=== PATIENT | female | born 1975 | race Caucasian/White ===

== ENCOUNTER 2023-04-19 09:21 | Outpatient (OUT) | payer OTHER, SELFPAY ==
[2023-04-19 10:57] LABS: Chol HDL Ratio 2.3; Cholesterol 172 mg/dL (<=200); HDL Cholesterol 74 mg/dL (40-60); Triglycerides 57 mg/dL (<=150); VLDL CHOLESTEROL 11.4 mg/dL
== END 2023-04-19 09:22 | disposition home or self-care (01) ==
PROVIDERS: PCP Nurse Practitioner Primary Care; Visit Provider Nurse Practitioner Primary Care
DX: E78.00 Pure hypercholesterolemia, unspecified (principal)
CPT/HCPCS: 80061

== ENCOUNTER 2023-05-04 13:00 | Outpatient (OUT) | payer OTHER, SELFPAY | END 2023-05-04 13:01 | disposition home or self-care (01) | LOC: PST 05-13 18:31 | PROVIDERS: PCP Nurse Practitioner Primary Care; Visit Provider Surgery | DX: Z01.818 Encounter for other preprocedural examination (principal); Z12.11 Encounter for screening for malignant neoplasm of colon ==

== ENCOUNTER 2023-05-11 07:30 | Day surgery (SDC) | payer OTHER, SELFPAY ==
[2023-05-11] MEDS: LACTATED RINGER'S SOLUTION 1,000 ML 50 ML IV (07:30)
[2023-05-11 07:45] VITALS: BP 139/91; PULSE 56; RESP 20; TEMP 36.4; O2SAT 98; BMI 30.2
[2023-05-11 08:00] LABS: HCG Qualitative NEGATIVE (NEGATIVE)
[2023-05-11 08:25] LABS: HCG Quantitative 5 mIU/mL
[2023-05-11 09:36] VITALS: BP 112/71; PULSE 59; RESP 20; TEMP 36.1; O2SAT 99
--- NOTE | 2023-05-11 09:38 | PM.GSPRC ---
Date of procedure: 05/11/23 Indications for Procedure: This patient is a 47-year-old female who presents for screening colonoscopy. The risks benefits options and potential complications of the procedure were discussed in detail with the patient and they agreed to proceed and consent was signed. Pre-op diagnosis: colon cancer screening Post-op diagnosis: other (normal exam) Procedure: colonoscopy Anesthesia: MAC Surgeon: Hernan Rivero Procedure Summary: The patient was brought to the endoscopy suite and placed in the left lateral decubitus position.? Under MAC the fiberoptic colonoscope was introduced into the rectum. This was gradually advanced through the colon to the cecum. The cecal landmarks were identified. The bowel prep was good. Gradual withdrawal of the colonoscope was then undertaken. No vascular polypoid or mucosal lesions were noted throughout the entire length of the colon. The anal rectal canal was unremarkable. The colon was decompressed. Digital rectal exam was unremarkable. The procedure was ended and the patient was transferred to the recovery area in stable condition. Recommended follow-up colonoscopy in ten years. Estimated blood loss (mL): 0 Specimens: none Complications: No
[2023-05-11 09:53] VITALS: BP 147/98; PULSE 58; RESP 18; O2SAT 98
[2023-05-11 10:05] VITALS: BP 151/95; PULSE 58; RESP 16; O2SAT 96
== END 2023-05-11 10:06 | disposition home or self-care (01) ==
PROVIDERS: PCP Nurse Practitioner Primary Care; Visit Provider Surgery
PROC: (CPT 812; principal; 2023-05-11 08:30)
DX: Z12.11 Encounter for screening for malignant neoplasm of colon (principal); K21.9 Gastro-esophageal reflux disease without esophagitis; Z86.74 Personal history of sudden cardiac arrest; R56.9 Unspecified convulsions; Z98.51 Tubal ligation status; Z98.84 Bariatric surgery status; Z87.891 Personal history of nicotine dependence
CPT/HCPCS: 00812; 45378; 36415; 84702; 84703; J2704

== ENCOUNTER 2023-05-14 13:21 | Outpatient (OUT) | payer OTHER, SELFPAY ==
[2023-05-10 14:51] LABS: Amphetamine Screen Urine NEGATIVE (NEGATIVE); Barbiturates Screen Urine NEGATIVE (NEGATIVE); Benzodiazepines Screen Urine NEGATIVE (NEGATIVE); Buprenorphine Screen Urine NEGATIVE (NEGATIVE); Cannabinoid Screen Urine NEGATIVE (NEGATIVE); Cocaine Screen Urine NEGATIVE (NEGATIVE); Methadone Screen Urine NEGATIVE (NEGATIVE); Methamphetamines Screen Urine NEGATIVE (NEGATIVE); Opiate Screen Urine NEGATIVE (NEGATIVE); Oxycodone Screen Urine NEGATIVE (NEGATIVE); Phencyclidine Screen Urine NEGATIVE (NEGATIVE); Tricyclic Antidepressant Urine NEGATIVE (NEGATIVE)
== END 2023-05-14 13:22 | disposition home or self-care (01) ==
LOC: LAB 13:21
PROVIDERS: PCP Nurse Practitioner Primary Care; Visit Provider Surgery
DX: Z01.812 Encounter for preprocedural laboratory examination (principal); Z12.11 Encounter for screening for malignant neoplasm of colon
CPT/HCPCS: 80307